=== PATIENT | male | born 1950 | race Caucasian/White ===

== ENCOUNTER 2018-04-01 20:44 | Observation (INO) ==
--- NOTE | 2018-04-01 21:51 | ED ---
HPI General Chief Complaint: Seizure Stated Complaint: Seizures/Evac Time Seen by Provider: 04/01/18 21:40 History of Present Illness HPI Narrative: 67-year-old male presents to the emergency department by EMS transport after syncopal episode at home. Patient has history of seizure disorder previous intracranial clipping and history of chronic back pain with prior lumbar laminectomy presents to the emergency department for evaluation. Patient here reports that today he was washing items for the recycling been did not have any aura for seizure had some mild lightheadedness but was not having a new headache sudden onset headache thunderclap headache worse headache of his life not experiencing any chest pain shortness of breath nausea vomiting focal upper extremity lower extremity numbness tingling or weakness or ataxia gait was going to go into the garage but actually found himself on the floor in the garage. Patient states there was no incontinence and no tongue trauma. Did not complain of new head pain neck pain back pain chest pain rib pain shortness of breath abdominal pain pelvic pain or extremity injury. Patient was able to get up off of the garage floor on his own went back into his house to the kitchen and then reports that his found him on the floor again and he knew immediately who he was where he was and who she was but again was not aware that he had a syncopal episode; did have episode of urinary incontinence at that time. Patient states based on his history of seizure disorder he did not think that he had had a seizure it was not typical of his seizures and there was no postictal confusion. Patient has been compliant with his medications. Patient denies any preceding or post headache visual disturbance altered mentation neck pain back pain chest pain rib pain shortness of breath nausea vomiting abdominal pain flank pain pelvic pain upper or lower extremity pain or weakness. Patient does have chronic weakness of the right upper extremity there is been present for several months that is not new and has history of chronic headache for over 10 intensity that is not atypical or more intense. Patient has had no recent febrile illness and no change in stools or bloody or black tarry stools. Patient does not take any blood thinning agent. Related Data Home Medications Medication Instructions Recorded Confirmed cetirizine [Zyrtec] 10 mg PO DAILY 04/01/18 04/01/18 clorazepate dipotassium 15 mg PO HS PRN 04/01/18 04/01/18 glucosamine sulfate [Glucosamine] 1,500 mg PO DAILY 04/01/18 04/01/18 latanoprost 1 drp OPHTHALMIC (EYE) QPM 04/01/18 04/01/18 gghgudfl-hyi-JF-lycopen-lutein 1 tab PO DAILY 04/01/18 04/01/18 [Centrum Silver Men] oxcarbazepine 900 mg PO BID 04/01/18 04/01/18 Allergies Allergy/AdvReac Type Severity Reaction Status Date / Time No Known Allergies Allergy Uncoded 09/14/16 14:25 Review of Systems ROS Unobtainable All other systems reviewed negative except as stated in HPI [facility] Medical History Medical History Chronic back pain (Acute) Seizure (Acute) Sleep apnea (Acute) Surgical History Surgical History H/O brain surgery (Acute) History of appendectomy (Acute) History of cervical spinal surgery (Acute) History of shoulder surgery (Acute) Hx of splenectomy (Acute) Social History Social History Substance History: No History of Abuse Second Hand Smoke Exposure: No Smoking Status: Never smoker How Often Do You Have a Drink Containing Alcohol: Never Recent Travel in [facility] within the Last 8 Weeks: No Recent Out of Country Travel within the Last 8 Weeks: No Immunization History Tetanus Immunization: <5 Years Hx Influenza Vaccine This Season: Yes Exam Narrative Exam Narrative: GENERAL: Well-developed well-nourished male no acute distress no respiratory distress resting supine with cervical collar in place; GCS 15 SKIN: Focused skin assessment warm/dry. HEAD: Atraumatic. Normocephalic. Small right lateral forehead hematoma without tenderness and no bony abnormality no abrasion no laceration. EYES: Pupils equal and round reactive to light. No scleral icterus. No injection or drainage. Extraocular muscles intact. ENT: No nasal bleeding or discharge. Mucous membranes pink and moist. Airway is patent no dental malocclusion. NECK: Trachea midline. No JVD. Midline palpation along the cervical spine reveals no bony tenderness or bony step-off no paracervical muscle spasm. Patient denies neck pain and requests collar removal at this time c-collar is removed by me. CARDIOVASCULAR: Regular rate and rhythm. No murmur appreciated. RESPIRATORY: No accessory muscle use. Clear to auscultation. Breath sounds equal bilaterally. GASTROINTESTINAL: Abdomen soft, non-tender, nondistended. Hepatic and splenic margins not palpable. MUSCULOSKELETAL: No obvious deformities. No clubbing. No cyanosis. No edema. NEUROLOGICAL: Awake and alert. No obvious cranial nerve deficits. Motor grossly within normal limits. Normal speech. PSYCHIATRIC: Appropriate mood and affect; insight and judgment normal. Course Reevaluation(s) Reevaluation #1: It is 12:50 AM patient is feeling improved exam is essentially unchanged still has a small abrasion to the forehead otherwise no other palpable findings to the head and neck is nontender chest wall is nontender lung sounds are clear abdomen is soft patient has superficial abrasion to the right knee patient reports last tetanus and rosacea within the past 2 years EKG shows a sinus rhythm with a right bundle branch block pattern that is noticed on previous EKG 03/23/15; patient's lab values are found to be grossly within normal range except for mild lymphocytosis troponin I is 0.02 not elevated urinalysis is unremarkable. It is unclear whether or not patient had new onset syncopal episode or seizure episode was atypical for him. Discussed with Dr Lacey --acepted for OBS admission DX: Syncope Time: 00:53 Initial Documented Vital Signs Temperature 98.8 F 04/01/18 21:03 Pulse Rate 84 04/01/18 21:03 Respiratory Rate 18 04/01/18 21:03 Blood Pressure 164/86 H 04/01/18 21:03 Pulse Oximetry 95 04/01/18 21:03 Last Documented Vital Signs Temperature 98.8 F 04/01/18 21:03 Pulse Rate 87 04/01/18 23:52 Respiratory Rate 18 04/01/18 23:52 Blood Pressure 143/70 H 04/01/18 23:52 Pulse Oximetry 96 04/01/18 23:52 Medical Decision Making [facility] Narrative Medical decision making narrative: 67-year-old male presents to the emergency department after a syncopal episode with atypical features of his history of seizure without preceding symptomatology other than dizziness will need to be evaluated for possible new onset seizure/syncope/arrhythmia/minor closed head injury, cervical spine sprain strain fracture/anemia/PE/ ACS; patient is Supine cervical collar removed imaging studies ordered along with basic lab work and EKG patient placed on plumbing engineer with continuous pulse oximetry IV access obtained. Differential Diagnosis Differential Diagnosis: Syncope seizure arrhythmia electrolyte disturbance ACS PE Medical Records Medical records reviewed: Yes I reviewed the patient's medical records. Lab Data Result diagrams: 04/01/18 21:50 04/01/18 21:30 Lab Results 04/01/18 04/01/18 04/01/18 Range/Units 21:30 21:50 21:50 WBC 9.7 (4.0-11.0) th/mm3 RBC 4.56 (4.50-5.90) mil/mm3 Hgb 14.8 (13.0-17.0) gm/dL Hct 44.3 (39.0-51.0) % MCV 97.0 (80.0-100.0) fL MCH 32.5 (27.0-34.0) pg MCHC 33.5 (32.0-36.0) % RDW 14.4 (11.6-17.2) % Plt Count 266 (150-450) th/mm3 MPV 9.5 (7.0-11.0) fL Neut % (Auto) 44.6 (16.0-70.0) % Lymph % (Auto) 47.1 H (9.0-44.0) % [place] % (Auto) 7.9 (0.0-8.0) % Eos % (Auto) 0.0 (0.0-4.0) % Baso % (Auto) 0.4 (0.0-2.0) % Neut # (Auto) 4.3 (1.8-7.7) th/mm3 Lymph # (Auto) 4.6 (1.0-4.8) th/mm3 [place] # (Auto) 0.8 (0.0-0.9) th/mm3 Eos # (Auto) 0.0 (0.0-0.4) th/mm3 Baso # (Auto) 0.0 (0.0-0.2) th/mm3 WBC Differential . Differential Comment Auto diff final PT 10.3 (9.8-11.6) sec INR 1.0 Ratio APTT 35.0 H (24.3-30.1) sec Sodium 143 (136-145) meq/L Potassium 3.6 (3.5-5.1) meq/L Chloride 107 (98-107) meq/L Carbon Dioxide 25.2 (21.0-32.0) meq/L Anion Gap 11 (5-15) meq/L BUN 13 (7-18) mg/dL Creatinine 0.98 (0.60-1.30) mg/dL Estimated GFR 76 L (>89) mL/min Random Glucose 103 (74-106) mg/dL Calcium 8.5 (8.5-10.1) mg/dL Magnesium 2.0 (1.5-2.5) mg/dL Total Bilirubin 0.3 (0.2-1.0) mg/dL AST 38 H (15-37) U/L ALT 37 (12-78) U/L Alkaline Phosphatase 112 (45-117) U/L Troponin I Less than 0.02 L (0.02-0.05) ng/mL Total Protein 7.6 (6.4-8.2) g/dL Albumin 3.6 (3.4-5.0) g/dL Urine Color (Yellw/Straw) Urine Clarity (Clear) Urine pH (5.0-8.5) Ur Specific [place] (1.002-1.035) Urine Protein (Neg-Trace) mg/dL Urine Glucose (UA) (Negative) mg/dL Urine Ketones (Negative) mg/dL Urine Occult Blood (Negative) Urine Nitrate (Negative) Urine Bilirubin (Negative) Urine Urobilinogen (Less than 2) mg/dL Ur Leukocyte Esterase (Negative) Urine RBC (0-3) /hpf Urine WBC (0-5) /hpf Urine Mucus (Occasional) /lpf Micro UA Comment Urine Culture Comments 04/01/18 Range/Units 23:50 WBC (4.0-11.0) th/mm3 RBC (4.50-5.90) mil/mm3 Hgb (13.0-17.0) gm/dL Hct (39.0-51.0) % MCV (80.0-100.0) fL MCH (27.0-34.0) pg MCHC (32.0-36.0) % RDW (11.6-17.2) % Plt Count (150-450) th/mm3 MPV (7.0-11.0) fL Neut % (Auto) (16.0-70.0) % Lymph % (Auto) (9.0-44.0) % [place] % (Auto) (0.0-8.0) % Eos % (Auto) (0.0-4.0) % Baso % (Auto) (0.0-2.0) % Neut # (Auto) (1.8-7.7) th/mm3 Lymph # (Auto) (1.0-4.8) th/mm3 [place] # (Auto) (0.0-0.9) th/mm3 Eos # (Auto) (0.0-0.4) th/mm3 Baso # (Auto) (0.0-0.2) th/mm3 WBC Differential Differential Comment PT (9.8-11.6) sec INR Ratio APTT (24.3-30.1) sec Sodium (136-145) meq/L Potassium (3.5-5.1) meq/L Chloride (98-107) meq/L Carbon Dioxide (21.0-32.0) meq/L Anion Gap (5-15) meq/L BUN (7-18) mg/dL Creatinine (0.60-1.30) mg/dL Estimated GFR (>89) mL/min Random Glucose (74-106) mg/dL Calcium (8.5-10.1) mg/dL Magnesium (1.5-2.5) mg/dL Total Bilirubin (0.2-1.0) mg/dL AST (15-37) U/L ALT (12-78) U/L Alkaline Phosphatase (45-117) U/L Troponin I (0.02-0.05) ng/mL Total Protein (6.4-8.2) g/dL Albumin (3.4-5.0) g/dL Urine Color Yellow (Yellw/Straw) Urine Clarity Hazy H (Clear) Urine pH 5.0 (5.0-8.5) Ur Specific [place] 1.021 (1.002-1.035) Urine Protein 100 H (Neg-Trace) mg/dL Urine Glucose (UA) Negative (Negative) mg/dL Urine Ketones Negative (Negative) mg/dL Urine Occult Blood Negative (Negative) Urine Nitrate Negative (Negative) Urine Bilirubin Negative (Negative) Urine Urobilinogen Less than 2 (Less than 2) mg/dL Ur Leukocyte Esterase Negative (Negative) Urine RBC 2 (0-3) /hpf Urine WBC 2 (0-5) /hpf Urine Mucus Few H (Occasional) /lpf Micro UA Comment Culture not ind Urine Culture Comments Culture not ind Imaging Data Radiologist's impression: ITS Impressions Cervical Spine CT 04/01/18 21:40 CONCLUSION: 1. No acute fracture or prevertebral soft tissue swelling. 2. Moderate bilateral foraminal narrowing at C4-5 and C5-6 and mild bilateral foraminal narrowing at C6-7. Head CT 04/01/18 21:42 CONCLUSION: 1. No acute hemorrhage, acute infarct, midline shift or extra-axial fluid collection. 2. Encephalomalacia involving the right frontal parietal lobe with asymmetric dilatation of the right lateral ventricle. 3. Multiple metallic foreign bodies within the right cerebral hemisphere status post surgery. Chest X-Ray 04/02/18 00:02 CONCLUSION: The lungs are clear. ECG Data Interpretation: EKG normal sinus rhythm rate 88 first-degree AV block right bundle branch block with left anterior fascicular block patient noted to have some her EKG with right bundle branch block 03/23/[address] elevation or injury pattern change noted Discharge Plan Discharge Disposition Patient Disposition: 30 Still Patient Discharge Details Discharge Problem: Syncope Physicians Team ED Provider: Narda Randle Primary Care Provider: Pako Lozano Rxs /Orders / Referrals /Forms Prescriptions: No Action latanoprost 0.005 % Drops 1 drp OPHTHALMIC (EYE) QPM RF: 0 cetirizine [Zyrtec] 10 mg Tablet 10 mg PO DAILY RF: 0 glucosamine sulfate [Glucosamine] 500 mg Tablet 1,500 mg PO DAILY RF: 0 oxcarbazepine 300 mg Tablet 900 mg PO BID RF: 0 clorazepate dipotassium 15 mg Tablet 15 mg PO HS PRN (Reason: Runny Nose) RF: 0 bpthxnhx-day-UE-lycopen-lutein [Centrum Silver Men] 300-600-300 mcg Tablet 1 tab PO DAILY RF: 0 Discharge Interventions Interventions: Vital Signs Last Done: 04/01/18 23:52 Status ED Status: With Doctor
[2018-04-01 22:34] LABS: Baso % (Auto) 0.4 % (0.0-2.0); Hematocrit 44.3 % (39.0-51.0); Hemoglobin 14.8 gm/dL (13.0-17.0); Lymph # (Auto) 4.6 th/mm3 (1.0-4.8); Lymph % (Auto) 47.1 % (9.0-44.0); Mean Corpuscular HGB Conc 33.5 % (32.0-36.0); Mean Corpuscular Hemoglobin 32.5 pg (27.0-34.0); Mean Platelet Volume 9.5 fL (7.0-11.0); Mono # (Auto) 0.8 th/mm3 (0.0-0.9); Mono % (Auto) 7.9 % (0.0-8.0); Neut # (Auto) 4.3 th/mm3 (1.8-7.7); Neut % (Auto) 44.6 % (16.0-70.0); Platelet Count 266 th/mm3 (150-450); Red Blood Count 4.56 mil/mm3 (4.50-5.90); Red Cell Distribution Width 14.4 % (11.6-17.2); White Blood Count 9.7 th/mm3 (4.0-11.0)
[2018-04-01 22:44] LABS: Prothrombin Time 10.3 sec (9.8-11.6)
[2018-04-01 23:32] LABS: Alkaline Phosphatase 112 U/L (45-117); Total Protein 7.6 g/dL (6.4-8.2)
[2018-04-01 23:36] LABS: Alanine Aminotransferase 37 U/L (12-78); Albumin 3.6 g/dL (3.4-5.0); Anion Gap 11 meq/L (5-15); Aspartate Aminotransferase 38 U/L (15-37); Blood Urea Nitrogen 13 mg/dL (7-18); Calcium 8.5 mg/dL (8.5-10.1); Carbon Dioxide 25.2 meq/L (21.0-32.0); Chloride 107 meq/L (98-107); Glomerular Filtration Rate 76 mL/min (>89); Glucose,Random 103 mg/dL (74-106); Potassium 3.6 meq/L (3.5-5.1); Sodium 143 meq/L (136-145)
[2018-04-02 00:05] LABS: Bilirubin,Urine Negative (Negative); Clarity,Urine Hazy (Clear); Color,Urine Yellow (Yellw/Straw); Glucose,Urine (UA) Negative (Negative); Leukocyte Esterase,Urine Negative (Negative); Mucus,Urine Few /lpf (Occasional); Nitrite,Urine Negative (Negative); Specific Gravity,Urine 1.021 (1.002-1.035)
--- NOTE | 2018-04-02 00:39 | XR ---
EXAM DATE: 04/02/2018 12:28 AM EDT AGE/SEX: 67 years / Male INDICATIONS: Short of breath. CLINICAL DATA: This is the patient's initial encounter. Patient reports that signs and symptoms have been present for 1 day and indicates a pain score of 3/10. MEDICAL/SURGICAL HISTORY: None. None. COMPARISON: [facility] [place], CHEST PA & LAT, 07/01/2016. [facility] [place], CT PULMONARY ANGIOGRAM, 03/23/2015. . FINDINGS: A single AP view of the chest demonstrates the lungs to be symmetrically aerated without evidence of mass, infiltrate or effusion. Moderate elevation of the right hemidiaphragm, similar to prior CT in 2015.. The cardiomediastinal contours are unremarkable. Old healed fracture of the lateral right clav icle. Stable moderate degenerative changes throughout the thoracic spine. CONCLUSION: The lungs are clear. Electronically signed by: Nito Luna MD 04/02/2018 12:37 AM EDT
[2018-04-02] MEDS ORDERED: Bisacodyl 10 MG Supp RECTAL PRN (01:04)
[2018-04-02] MEDS ORDERED: CLORAZEPATE 15 MG PO PRN (01:09)
[2018-04-02] MEDS: Sod Chloride 0.9% Inj 1,000 ML IV.CONT SCH ×3 (01:17→21:33)
--- NOTE | 2018-04-02 02:43 | P.HPIM ---
History of Present Illness Primary Care Physician: Pako Lozano MD History of Present Illness: This is a 67-year-old male with a PMH of HTN, Cerebral Aneurysm s/p Clipping, Seizure Disorder and Chronic Back Pain who was brought to the ER after apparent syncopal event. Pt states he remembers being in his kitchen, then woke up on the floor in the garage few moments later. Walked himself back into the kitchen when witness a syncopal event, no reported seizure per , however pt did have urinary incontinence. Pt has little recollection of events , but states he remembers feeling dizzy prior to syncope. Normally gets aura prior to seizure which he did not have at this time, states feels different from his previous episodes of seizures. Follows w/ Dr. King as outpatient, last medication change approx 1yr ago, no seizure activity since then. On arrival, BP 145/77, HR 89, O2 sat 99% of RA, Afebrile. CBC unremarkable. Chemistry essentially unremarkable except for GFR 76. Troponin negative. UA negative for UTI. CT Head with no acute findings, encephalomalacia of right frontal lobe, multiple metallic foreign bodies in the right cerebral hemisphere. CT C-spine no acute fracture. CXR lungs clear. Pt states he currently feels back to baseline. - Diagnosis (1) Seizure disorder (2) Syncope - Inpatient Certification If this patient has been admitted as an Inpatient: I certify that the inpatient services were ordered in accordance with Medicare regulations governing the order. This includes certification that hospital inpatient services are reasonable and necessary and in the case of services not specified as inpatient-only under 42 CFR 419.22(n), that they are appropriately provided as inpatient services in accordance to with the 2-midnight benchmark under 43 CFR 412.3(e) Review of Systems All other systems reviewed negative except as stated in HPI PMFSH - History History Provided By: Patient - Medical History Medical History: Medical History (Last Updated 04/01/18 @ 21:09 by Freya Walton) Chronic back pain (Acute) Seizure Sleep apnea - Surgical History Surgical History: Surgical History (Last Updated 04/01/18 @ 21:11 by Freya Walton) H/O brain surgery History of appendectomy History of cervical spinal surgery History of shoulder surgery Hx of splenectomy - Tobacco History Second Hand Smoke Exposure: No Smoking Status: Never smoker - Alcohol History How Often Do You Have a Drink Containing Alcohol: Never - Substance Use History Substance History: No History of Abuse - Travel History Recent Travel in the [place] Within the Last 8 Weeks: No Recent Travel Out of the Country Within the Last 8 Weeks: No - Immunization History Tetanus Immunization: <5 Years Hx Influenza Vaccine This Season: Yes Medications and Allergies Active Medications: Active Medications Al Hydroxide/Mg Hydroxide (Milk Of Magnesia Liq) 30 ml PO Q12H PRN PRN Reason: Mild Constipation Bisacodyl (Dulcolax Supp) 10 mg RECTAL DAILY PRN PRN Reason: SEVERE CONSITIPATION Sodium Chloride (Ns Inj) 1,000 mls @ 100 mls/hr IV.CONT .Q10H TRACY Last Admin: 04/02/18 01:17 Dose: 100 mls/hr Lactulose (Lactulose Liq) 30 ml PO DAILY PRN PRN Reason: SEVERE CONSITIPATION Latanoprost (Xalatan 0.005% Opth Drops) 1 drop EACH EYE QPM [facility] Non-Formulary Medication (Clorazepate) 15 mg PO HS PRN PRN Reason: Runny Nose Oxcarbazepine (Trileptal) 900 mg PO BID TRACY Senna/Docusate Sodium (Meredith-Colace) 1 tab PO BID TRACY Sennosides (Senokot) 17.2 mg PO Q12H PRN PRN Reason: Moderate Constipation Allergies Allergy/AdvReac Type Severity Reaction Status Date / Time No Known Allergies Allergy Uncoded 09/14/16 14:25 Home Medications Medication Instructions Recorded Confirmed Type cetirizine [Zyrtec] 10 mg PO DAILY 04/01/18 04/01/18 History clorazepate dipotassium 15 mg PO HS PRN 04/01/18 04/01/18 History glucosamine sulfate [Glucosamine] 1,500 mg PO DAILY 04/01/18 04/01/18 History latanoprost 1 drp OPHTHALMIC (EYE) QPM 04/01/18 04/01/18 History ypzsocaw-xzq-UD-lycopen-lutein 1 tab PO DAILY 04/01/18 04/01/18 History [Centrum Silver Men] oxcarbazepine 900 mg PO BID 04/01/18 04/01/18 History Exam Vital signs: Vital Signs 04/01/18 21:03 04/01/18 21:45 04/01/18 23:52 Temperature 98.8 F Pulse Rate 84 87 Respiratory Rate 18 18 Blood Pressure 164/86 H 143/70 H Pulse Oximetry 95 95 96 04/02/18 01:20 04/02/18 01:50 04/02/18 01:58 Temperature 98.0 F Pulse Rate 89 76 Respiratory Rate 14 16 Blood Pressure 145/77 H 130/76 Pulse Oximetry 94 L 99 Intake & Output 04/01/18 04/01/18 04/02/18 06:59 18:59 06:59 Output Total 100 / 100 Balance -100 / -100 Weight 108.862 kg Output: Urine 100 / 100 Other: # Voids 2 # Incontinent Voids 1 Date of Last Bowel Movement 04/02/18 Narrative: PE: GENERAL: Extremely pleasant middle-aged white male in no acute distress. HEENT: PERRLA, EOMI. No scleral icterus or conjunctival pallor. No lid lag or facial droop. CARDIOVASCULAR: Regular rate and rhythm. No obvious murmurs to auscultation. No chest tenderness to palpation. RESPIRATORY: No obvious rhonchi or wheezing. Clear to auscultation. Breath sounds equal bilaterally. GASTROINTESTINAL: Abdomen soft, non-tender, nondistended. BS normal. MUSCULOSKELETAL: Extremities without clubbing, cyanosis, or edema. No obvious deformities. NEUROLOGICAL: Awake, alert and oriented x4. No focal neurologic deficits. Moving both upper and lower extremities spontaneously. Results - Labs CBC & Chem 7: 04/01/18 21:50 04/01/18 21:30 Labs: Short CBC 04/01/18 Range/Units 21:50 WBC 9.7 (4.0-11.0) th/mm3 Hgb 14.8 (13.0-17.0) gm/dL Hct 44.3 (39.0-51.0) % Plt Count 266 (150-450) th/mm3 BMP 04/01/18 21:30 Sodium 143 Potassium 3.6 Chloride 107 Carbon Dioxide 25.2 BUN 13 Creatinine 0.98 Calcium 8.5 Cardiac Enzymes 04/01/18 Range/Units 21:30 Troponin I Less than 0.02 L (0.02-0.05) ng/mL Liver Function 04/01/18 Range/Units 21:30 Total Bilirubin 0.3 (0.2-1.0) mg/dL AST 38 H (15-37) U/L ALT 37 (12-78) U/L Alkaline Phosphatase 112 (45-117) U/L Albumin 3.6 (3.4-5.0) g/dL Urine 04/01/18 Range/Units 23:50 Urine Color Yellow (Yellw/Straw) Urine Clarity Hazy H (Clear) Urine pH 5.0 (5.0-8.5) Ur Specific [place] 1.021 (1.002-1.035) Urine Protein 100 H (Neg-Trace) mg/dL Urine Glucose (UA) Negative (Negative) mg/dL - Imaging Impressions Cervical Spine CT 04/01/18 21:40 CONCLUSION: 1. No acute fracture or prevertebral soft tissue swelling. 2. Moderate bilateral foraminal narrowing at C4-5 and C5-6 and mild bilateral foraminal narrowing at C6-7. Head CT 04/01/18 21:42 CONCLUSION: 1. No acute hemorrhage, acute infarct, midline shift or extra-axial fluid collection. 2. Encephalomalacia involving the right frontal parietal lobe with asymmetric dilatation of the right lateral ventricle. 3. Multiple metallic foreign bodies within the right cerebral hemisphere status post surgery. Chest X-Ray 04/02/18 00:02 CONCLUSION: The lungs are clear. Caprini VTE Risk Assessment Caprini VTE Risk Assessment: No/Low Risk (score <= 1) Caprini Risk Assessment Model: Point Value = 1 Point Value = 2 Point Value = 3 Point Value = 5 Age 41-60 Minor surgery BMI > 25 kg/m2 Swollen legs Varicose veins or History of unexplained or recurrent spontaneous Oral contraceptives or hormone replacement Sepsis (< 1 month) Serious lung disease, including pneumonia (< 1 month) Abnormal pulmonary function Acute myocardial infarction Congestive heart failure (< 1 month) History of inflammatory bowel disease Medical patient at bed rest Age 61-74 Arthroscopic surgery Major open surgery (> 45 min) Laparoscopic surgery (> 45 min) Malignancy Confined to bed (> 72 hours) Immobilizing plaster cast Central venous access Age >= 75 History of VTE Family history of VTE Factor V Leiden Prothrombin 30078C Lupus anticoagulant Anticardiolipin antibodies Elevated serum homocysteine Heparin-induced thrombocytopenia Other congenital or acquired thrombophilia Stroke (< 1 month) Elective arthroplasty Hip, pelvis, or leg fracture Acute spinal cord injury (< 1 month) Prophylaxis Regimen: Total Risk Factor Score Risk Level Prophylaxis Regimen 0-1 Low Early ambulation 2 Moderate Order ONE of the following: *Sequential Compression Device (SCD) *Heparin 5000 units SQ BID 3-4 Higher Order ONE of the following medications: *Heparin 5000 units SQ TID *Enoxaparin/Lovenox 40 mg SQ daily (WT < 150 kg, CrCl > 30 mL/min) *Enoxaparin/Lovenox 30 mg SQ daily (WT < 150 kg, CrCl > 10-29 mL/min) *Enoxaparin/Lovenox 30 mg SQ BID (WT < 150 kg, CrCl > 30 mL/min) AND/OR *Sequential Compression Device (SCD) 5 or more Highest Order ONE of the following medications: *Heparin 5000 units SQ TID (Preferred with Epidurals) *Enoxaparin/Lovenox 40 mg SQ daily (WT < 150 kg, CrCl > 30 mL/min) *Enoxaparin/Lovenox 30 mg SQ daily (WT < 150 kg, CrCl > 10-29 mL/min) *Enoxaparin/Lovenox 30 mg SQ BID (WT < 150 kg, CrCl > 30 mL/min) AND *Sequential Compression Device (SCD) Assessment and Plan - Assessment (1) Seizure disorder Code(s): G40.909 - Epilepsy, unspecified, not intractable, without status epilepticus Status: Acute (2) Syncope Code(s): R55 - Syncope and collapse Status: Acute - Plan A/P: 1. Syncope: apparent syncope x2 while at home, reports some dizziness prior to event, no h/o similar symptoms. CT Head/C-Spine w/ no acute findings, trop negative. Admit for Observation, telemetry, check serial cardiac enzymes to eval for underlying ischemia, check Echo for valvular abnormality/ cardiomyopathy. 2. Seizure Disorder: h/o seizure disorder, no witnessed seizure activity by however +incontinence. Seizure Precautions, resume home medications, check EEG. Consult Dr. King w/ whom he follows for further eval/ recommendations. 3. DVT Prophylaxis: SCD/Teds 4. Social work for d/c planning as needed. 5. Case discussed w/ ER physician at length, labs/records/imaging reviewed by me H&P: Quality - VTE Deep Vein Thrombosis/Pulmonary Embolism Present on Admission: No (2) Syncope Qualifiers: Syncope type: unspecified Qualified Code(s): R55 - Syncope and collapse
[2018-04-02] MEDS: Senna/Docusate Sodium 8.6/50 MG Tablet PO SCH ×2 (10:00→21:32)
[2018-04-02] MEDS: OXcarbazepine 300 MG Tablet PO SCH ×2 (10:00→21:31)
--- NOTE | 2018-04-02 11:18 | ECG ---
Date Performed: 04/01/2018 Time Performed: 20:58:12 PTAGE: 67 years EKG: Sinus rhythm WITH FIRST DEGREE AV BLOCK RIGHT BUNDLE BRANCH BLOCK LEFT ANTERIOR FASCICULAR BLOCK ABNORMAL ECG PREVIOUS TRACING : 07/01/2016 14.58 Since the previous tracing, no significant change noted DOCTOR: Catrachito Harding Interpretating Date/Time 04/02/2018 11:17:53
--- NOTE | 2018-04-02 11:18 | ECG ---
Date Performed: 04/01/2018 Time Performed: 21:48:27 PTAGE: 67 years EKG: Sinus rhythm WITH FIRST DEGREE AV BLOCK RIGHT BUNDLE BRANCH BLOCK LEFT ANTERIOR FASCICULAR BLOCK ABNORMAL ECG PREVIOUS TRACING : 04/01/2018 20.58 Since the previous tracing, no significant change noted DOCTOR: Catrachito Harding Interpretating Date/Time 04/02/2018 11:17:30
--- NOTE | 2018-04-02 14:51 | ECHRPT ---
Indication: CARDIOMYOPATHY CONCLUSIONS Normal left ventricular size. Wall thickness is normal. The left ventricular systolic function is hyperdynamic with an estimated ejection fraction in the ra nge of 65- 70%. There is trace tricuspid valve regurgitation. A prominent epicardial fat pad is present. BP: / HR: Rhythm: Sinus MEASUREMENTS (Male / Female) Normal Values Technical Quality:Fair 2D ECHO LV Diastolic Diameter PLAX 5.5 cm 4.2 - 5.9 / 3.9 - 5.3 cm LV Systolic Diameter PLAX 3.5 cm IVS Diastolic Thickness 1.0 cm 0.6 - 1.0 / 0.6 - 0.9 cm LVPW Diastolic Thickness 1.0 cm 0.6 - 1.0 / 0.6 - 0.9 cm LV Relative Wall Thickness 0.4 RV Internal Dim ED PLAX 3.1 cm LVOT Diameter 2.4 cm Aortic Root Diameter 3.9 cm LA Systolic Diameter LX 3.9 cm 3.0 - 4.0 / 2.7 - 3.8 cm M-MODE AV Cusp Separation MM 2.3 cm DOPPLER AV Peak Velocity 125.0 cm/s AV Peak Gradient 6.3 mmHg AV Mean Gradient 3.0 mmHg AV Velocity Time Integral 21.2 cm LVOT Peak Velocity 100.0 cm/s LVOT Peak Gradient 4.0 mmHg LVOT Velocity Time Integral 16.1 cm AV Area Cont Eq vti 3.4 cm AV Area Cont Eq pk 3.6 cm Mitral E Point Velocity 77.0 cm/s Mitral A Point Velocity 84.4 cm/s Mitral E to A Ratio 0.9 TR Peak Velocity 155.0 cm/s TR Peak Gradient 9.6 mmHg PV Peak Velocity 67.7 cm/s PV Peak Gradient 1.8 mmHg FINDINGS LEFT VENTRICLE Normal left ventricular size. Wall thickness is normal. The left ventricular systolic function is hyperdynamic with an estimated ejection fraction in the ra nge of 65- 70%. RIGHT VENTRICLE Normal right ventricular size and systolic function. LEFT ATRIUM The left atrial size is normal. RIGHT ATRIUM The right atrial size is normal. ATRIAL SEPTUM The interatrial septum not well visualized. AORTA The aortic root and proximal ascending aorta are normal in size on limited imaging. MITRAL VALVE Structurally normal mitral valve. No mitral valve stenosis or regurgitation. AORTIC VALVE Trileaflet aortic valve. No aortic valve stenosis or regurgitation. TRICUSPID VALVE There is trace tricuspid valve regurgitation. PULMONARY VALVE No pulmonary valve regurgitation or stenosis. VESSELS The inferior vena cava was not well visualized. PERICARDIUM A prominent epicardial fat pad is present. Ancelmo Suarez MD, FACC (Electronically Signed) Final Date:02 April 2018 14:50
--- NOTE | 2018-04-02 15:58 | P.PN ---
Subjective Interval history: Follow up for seizure vs syncope. The patient is seen with his at bedside. The patient reports feeling better today without any acute medical complaints. He states yesterday he was outside in the garage when he just went down. He states this was not like his prior seizures where he experiences an aura. He did have urinary incontinence during this episode. Denies tongue biting. He was able to get up, walk into the house, when he had another episode in front of his . The denies noticing any tonic-clonic movements, however he had a blank stare and was unable to get out any words. The patient is now back to his baseline. Physical Exam Vital signs: Vital Signs 04/01/18 21:03 04/01/18 21:45 04/01/18 23:52 Temperature 98.8 F Pulse Rate 84 87 Respiratory Rate 18 18 Blood Pressure 164/86 H 143/70 H Pulse Oximetry 95 95 96 04/02/18 01:20 04/02/18 01:50 04/02/18 01:58 Temperature 98.0 F Pulse Rate 89 76 Respiratory Rate 14 16 Blood Pressure 145/77 H 130/76 Pulse Oximetry 94 L 99 04/02/18 04:38 04/02/18 07:41 04/02/18 10:38 Temperature 98.8 F 98.8 F Pulse Rate 76 71 71 Respiratory Rate 17 20 Blood Pressure 135/69 137/71 Pulse Oximetry 93 L 95 04/02/18 12:21 Temperature 98.9 F Pulse Rate 96 H Respiratory Rate 18 Blood Pressure 145/95 H Pulse Oximetry 95 Intake & Output 04/01/18 04/02/18 04/02/18 18:59 06:59 18:59 Output Total 500 / 500 300 / 300 Balance -500 / -500 -300 / -300 Weight 108.862 kg Output: Urine 500 / 500 300 / 300 Other: # Voids 2 # Incontinent Voids 1 Date of Last Bowel Movement 04/02/18 03/31/18 Narrative: GENERAL: Well-nourished, well-developed pleasant male patient in [facility]. SKIN: Warm and dry. No rash. HEENT: Normocephalic. Atraumatic. Old right craniotomy scarring. Pupils equal and round. Mucous membranes pink and moist. CARDIOVASCULAR: Regular rate and rhythm. No murmur appreciated. RESPIRATORY: No accessory muscle use. Clear to auscultation. Breath sounds equal bilaterally. GASTROINTESTINAL: Abdomen soft, non-tender, nondistended. Normoactive bowel sounds x4. MUSCULOSKELETAL: No obvious deformities. Extremities without clubbing, cyanosis , or edema. NEUROLOGICAL: Awake and alert. No obvious cranial nerve deficits. Motor grossly within normal limits. Moving all extremities spontaneously. Normal speech. PSYCHIATRIC: Appropriate mood and affect; insight and judgment normal. Results - Labs CBC & Chem 7: 04/01/18 21:50 04/01/18 21:30 Laboratory Results - last 24 hr 04/01/18 04/01/18 04/01/18 21:30 21:50 21:50 WBC 9.7 RBC 4.56 Hgb 14.8 Hct 44.3 MCV 97.0 MCH 32.5 MCHC 33.5 RDW 14.4 Plt Count 266 MPV 9.5 Neut % (Auto) 44.6 Lymph % (Auto) 47.1 H [place] % (Auto) 7.9 Eos % (Auto) 0.0 Baso % (Auto) 0.4 Neut # (Auto) 4.3 Lymph # (Auto) 4.6 [place] # (Auto) 0.8 Eos # (Auto) 0.0 Baso # (Auto) 0.0 WBC Differential . Differential Comment Auto diff final PT 10.3 INR 1.0 APTT 35.0 H Sodium 143 Potassium 3.6 Chloride 107 Carbon Dioxide 25.2 Anion Gap 11 BUN 13 Creatinine 0.98 Estimated GFR 76 L POC Glucose Random Glucose 103 Calcium 8.5 Magnesium 2.0 Total Bilirubin 0.3 AST 38 H ALT 37 Alkaline Phosphatase 112 Troponin I Less than 0.02 L Total Protein 7.6 Albumin 3.6 Urine Color Urine Clarity Urine pH Ur Specific [place] Urine Protein Urine Glucose (UA) Urine Ketones Urine Occult Blood Urine Nitrate Urine Bilirubin Urine Urobilinogen Ur Leukocyte Esterase Urine RBC Urine WBC Urine Mucus Micro UA Comment Urine Culture Comments 04/01/18 04/02/18 04/02/18 23:50 07:00 10:43 WBC RBC Hgb Hct MCV MCH MCHC RDW Plt Count MPV Neut % (Auto) Lymph % (Auto) [place] % (Auto) Eos % (Auto) Baso % (Auto) Neut # (Auto) Lymph # (Auto) [place] # (Auto) Eos # (Auto) Baso # (Auto) WBC Differential Differential Comment PT INR APTT Sodium Potassium Chloride Carbon Dioxide Anion Gap BUN Creatinine Estimated GFR POC Glucose 108 Random Glucose Calcium Magnesium Total Bilirubin AST ALT Alkaline Phosphatase Troponin I Less than 0.02 L Total Protein Albumin Urine Color Yellow Urine Clarity Hazy H Urine pH 5.0 Ur Specific [place] 1.021 Urine Protein 100 H Urine Glucose (UA) Negative Urine Ketones Negative Urine Occult Blood Negative Urine Nitrate Negative Urine Bilirubin Negative Urine Urobilinogen Less than 2 Ur Leukocyte Esterase Negative Urine RBC 2 Urine WBC 2 Urine Mucus Few H Micro UA Comment Culture not ind Urine Culture Comments Culture not ind - Imaging Impressions Cervical Spine CT 04/01/18 21:40 CONCLUSION: 1. No acute fracture or prevertebral soft tissue swelling. 2. Moderate bilateral foraminal narrowing at C4-5 and C5-6 and mild bilateral foraminal narrowing at C6-7. Head CT 04/01/18 21:42 CONCLUSION: 1. No acute hemorrhage, acute infarct, midline shift or extra-axial fluid collection. 2. Encephalomalacia involving the right frontal parietal lobe with asymmetric dilatation of the right lateral ventricle. 3. Multiple metallic foreign bodies within the right cerebral hemisphere status post surgery. Chest X-Ray 04/02/18 00:02 CONCLUSION: The lungs are clear. Assessment and Plan - Assessment (1) Seizure disorder Code(s): G40.909 - Epilepsy, unspecified, not intractable, without status epilepticus Status: Acute (2) Syncope Code(s): R55 - Syncope and collapse Status: Acute - Plan 67-year-old male with a PMH of HTN, Cerebral Aneurysm s/p Clipping, Seizure Disorder and Chronic Back Pain who was brought to the ER after apparent syncopal event. Syncope: apparent syncope x2 while at home, reports some dizziness prior to event, no h/o similar symptoms; however did have urinary incontinence -CT Head reviewed, shows no acute findings; Encephalomalacia involving the right frontal parietal lobe with asymmetric dilatation of the right lateral ventricle; Multiple metallic foreign bodies within the right cerebral hemisphere s/p surgery -CT C-Spine w/ no acute findings, reviewed -Monitor on telemetry -Check orthostatics -Check carotid U/S -Troponins negative x2, EKG without acute ischemic changes -check Echo for valvular abnormality/cardiomyopathy. -neurology consulted Seizure Disorder: h/o seizure disorder, no witnessed seizure activity by however +incontinence. -Seizure Precautions -resume home medications -check EEG. -Consult patient's neurologist Dr. King for further eval/ recommendations. DVT Prophylaxis: SCD/Teds Discharge Planning: Discharge pending EEG and neurology consultation and clearance. Progress Note: Quality - VTE Deep Vein Thrombosis/Pulmonary Embolism Present on Admission: No (2) Syncope Qualifiers: Syncope type: unspecified Qualified Code(s): R55 - Syncope and collapse
[2018-04-02] MEDS ORDERED: Latanoprost 0.005% Opth Drops 2.5 ML Bottle EACH EYE SCH (18:00)
--- NOTE | 2018-04-02 21:18 | MB ---
cc: Mirza Baltazar MD, PhD DATE: 04/02/2018 REASON FOR CONSULTATION: Loss of consciousness. HISTORY OF PRESENT ILLNESS: Mr. 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 This came to attention by producing seizures. He has a history of secondary seizure disorder. He is currently on Trileptal 900 mg b.i.d. This admission was prompted by 2 episodes of loss of consciousness. The first, he was in the garage, there were no witnesses, it was hot out. He had no warning, suddenly lost consciousness. He states for 3-4 minutes until the [facility]AC arrived following that was slightly confused, disoriented. There were some bladder incontinence. He walked back in the house. In the house, he had a second episode of loss of consciousness. He states his did witness this. He states that he suddenly stiffened up in his arms and legs and then lost consciousness for a shorter period of time. No tonic-clonic activity was witnessed, however. He does have a history of seizures and takes Trileptal 900 mg b.i.d. He states, in the past, he was on Tegretol, felt he was doing better on Tegretol, felt better with fewer side effects. He states the Tegretol was stopped because he had a low white blood cell count. It was found, however, that he had an enlarged spleen and once his spleen was taken out, his white count came back to normal, so it was felt that in retrospect it was probably not due to the Tegretol. PAST MEDICAL HISTORY: History of arteriovenous malformation, right hemisphere, status post surgery, seizure disorder, history of hypertension, lumbar spine surgery. CURRENT MEDICATIONS: 1. Trileptal 900 mg b.i.d. 2. Dulcolax. 3. Lactulose. 4. Xalatan eye drops. 5. Clorazepate. 6. Meredith-Colace. 7. Senokot. NEUROLOGIC EXAMINATION: VITAL SIGNS: Blood pressure is 157/74, pulse is 77 and regular, respirations are 18, temperature 98.2 degrees. HIGHER CORTICAL FUNCTION: He is alert and oriented x 3. Speech is normal. Comprehension is intact. CRANIAL NERVES: Pupils are 2 mm, symmetric, reactive to light. The extraocular movements are normal. There is no facial asymmetry. MOTOR EXAMINATION: He demonstrates 5/5 strength in all major groups in both upper and lower extremities. There is no drift. Fine motor are skills normal. Reflexes are symmetric. IMAGING STUDIES: CT of the brain reveals postoperative changes and encephalomalacia in the right hemisphere with metallic clips present. No acute change. No hemorrhage is identified. CT cervical spine shows foraminal narrowing of C4-C5 and C5-C6. No fractures identified. LABORATORY DATA: White count 9700; hemoglobin 14.8; hematocrit 44.3%; platelet count 266,000. Sodium is 143, potassium 3.6, chloride 107, CO2 of 25.7. The BUN is 13, creatinine 0.98, GFR 76, calcium 8.5, glucose 103, AST 38, ALT 37, alkaline phosphatase 112. His PT is 10.3, INR 1, aPTT 35.0. IMPRESSION AND RECOMMENDATIONS: Two episodes of loss of consciousness. The history is suggestive of seizures. The first episode was fairly prolonged, several minutes. He did have bladder incontinence and somewhat of a postictal state with some confusion. Second episode, he had some motor activity in terms of stiffening up. He states in the past, he felt Tegretol worked better for him, that he had fewer side effects. In retrospect, felt it was not causing the leukopenia as it was due to the hypersplenism. Therefore, I would recommend resuming Tegretol. Once he has had a therapeutic Tegretol level, we will taper off the Trileptal. We will obtain an EEG as well. He is told not to drive for at least 6 months of being seizure free. Mirza Baltazar MD, PhD RAMÓN/JUD , 08:30 PM , 09:17 PM
[2018-04-02] MEDS: carBAMazepine 200 MG Tablet PO SCH (21:32)
[2018-04-03 07:09] LABS: Baso % (Auto) 0.7 % (0.0-2.0); Hematocrit 43.7 % (39.0-51.0); Hemoglobin 14.7 gm/dL (13.0-17.0); Lymph # (Auto) 2.3 th/mm3 (1.0-4.8); Lymph % (Auto) 32.2 % (9.0-44.0); Mean Corpuscular HGB Conc 33.7 % (32.0-36.0); Mean Corpuscular Hemoglobin 32.7 pg (27.0-34.0); Mean Platelet Volume 9.2 fL (7.0-11.0); Mono # (Auto) 0.7 th/mm3 (0.0-0.9); Neut # (Auto) 4.1 th/mm3 (1.8-7.7); Neut % (Auto) 57.1 % (16.0-70.0); Platelet Count 252 th/mm3 (150-450); Red Blood Count 4.51 mil/mm3 (4.50-5.90); Red Cell Distribution Width 14.3 % (11.6-17.2); White Blood Count 7.1 th/mm3 (4.0-11.0)
[2018-04-03 07:15] LABS: Alanine Aminotransferase 31 U/L (12-78); Albumin 3.2 g/dL (3.4-5.0); Alkaline Phosphatase 103 U/L (45-117); Anion Gap 10 meq/L (5-15); Aspartate Aminotransferase 26 U/L (15-37); Blood Urea Nitrogen 12 mg/dL (7-18); Carbon Dioxide 22.4 meq/L (21.0-32.0); Chloride 110 meq/L (98-107); Glomerular Filtration Rate Greater Than 89 mL/min (>89); Glucose,Random 85 mg/dL (74-106); Sodium 142 meq/L (136-145)
[2018-04-03 07:17] LABS: Potassium 4.1 meq/L (3.5-5.1)
--- NOTE | 2018-04-03 09:51 | US ---
EXAM DATE: 04/03/2018 9:38 AM EDT AGE/SEX: 67 years / Male INDICATIONS: Cerebrovascular accident. CLINICAL DATA: This is the patient's subsequent encounter. Patient reports that signs and symptoms h ave been present for 1 day and indicates a pain score of 0/10. MEDICAL/SURGICAL HISTORY: . Seizure. Sleep apnea. Appendectomy. Splenectomy. Brain surgery. Cervical spine surgery. Shoulder surgery. COMPARISON: No prior exams available for comparison. VELOCITY PARAMETERS: ICA/CCA Ratio: Right 0.8 , Left 0.9 ICA: Right 53 cm/sec, Left 68 cm/sec CCA: Right 64 cm/sec, Left 75 cm/sec ECA: Right 55 cm/sec, Left 77 cm/sec Vertebral: Right 39 cm/sec antegrade, Left 49 cm/sec antegrade FINDINGS: Right Carotid: No significant plaque is visualized.The waveforms are within normal limits. Left Carotid: No significant plaque is visualized. The waveforms are within normal limits. Other: None. CONCLUSION: 1. Right Internal Carotid Artery: No significant stenosis or atherosclerotic plaque is visualized. 2. Left Internal Carotid Artery: No significant stenosis or atherosclerotic plaque is visualized. Electronically signed by: Ernie Arreguin MD 04/03/2018 9:50 AM EDT
[2018-04-03] MEDS: OXcarbazepine 300 MG Tablet PO SCH (10:45)
[2018-04-03] MEDS: Senna/Docusate Sodium 8.6/50 MG Tablet PO SCH (10:45)
[2018-04-03] MEDS: carBAMazepine 200 MG Tablet PO SCH (10:45)
--- NOTE | 2018-04-03 11:48 | P.PN ---
Physical Exam Vital signs: Vital Signs 04/02/18 12:21 04/02/18 16:00 04/02/18 17:41 Temperature 98.9 F 98.0 F 97.8 F Pulse Rate 96 H 76 Respiratory Rate 18 18 Blood Pressure 145/95 H 173/94 H 160/82 H Pulse Oximetry 95 99 95 04/02/18 17:43 04/02/18 17:45 04/02/18 20:10 Temperature 98.7 F 98.7 F Pulse Rate 75 77 79 Respiratory Rate 18 18 Blood Pressure 171/87 H 157/74 H Pulse Oximetry 94 L 95 04/02/18 21:17 04/03/18 00:00 04/03/18 00:05 Temperature 98.6 F 98.5 F Pulse Rate 77 80 68 Respiratory Rate 17 17 Blood Pressure 136/71 179/78 H Pulse Oximetry 93 L 93 L 04/03/18 00:32 04/03/18 00:33 04/03/18 03:50 Temperature Pulse Rate 67 Respiratory Rate Blood Pressure 165/81 H 163/83 H Pulse Oximetry 04/03/18 04:00 04/03/18 08:00 04/03/18 08:34 Temperature 98.1 F 98.7 F Pulse Rate 75 67 65 Respiratory Rate 17 16 Blood Pressure 133/67 161/88 H Pulse Oximetry 92 L 98 04/03/18 09:00 Temperature Pulse Rate 65 Respiratory Rate Blood Pressure Pulse Oximetry Intake & Output 04/02/18 04/03/18 04/03/18 18:59 06:59 18:59 Intake Total 846 / 846 Output Total 300 / 300 Balance 546 / 546 Intake: IV 846 / 846 NS Inj 1,000 ML @ 100 mls/hr IV 846 / 846 .CONT .Q10H TRACY Rx#:[id number] Output: Urine 300 / 300 Other: # Voids 3 Date of Last Bowel Movement 03/31/18 03/31/18 04/02/18 Results - Labs CBC & Chem 7: 04/03/18 06:15 04/03/18 06:15 Laboratory Results - last 24 hr 04/03/18 04/03/18 06:15 06:15 WBC 7.1 RBC 4.51 Hgb 14.7 Hct 43.7 MCV 97.0 MCH 32.7 MCHC 33.7 RDW 14.3 Plt Count 252 MPV 9.2 Neut % (Auto) 57.1 Lymph % (Auto) 32.2 [place] % (Auto) 10.0 H Eos % (Auto) 0.0 Baso % (Auto) 0.7 Neut # (Auto) 4.1 Lymph # (Auto) 2.3 [place] # (Auto) 0.7 Eos # (Auto) 0.0 Baso # (Auto) 0.0 WBC Differential . Differential Comment Auto diff final Sodium 142 Potassium 4.1 Chloride 110 H Carbon Dioxide 22.4 Anion Gap 10 BUN 12 Creatinine 0.83 Estimated GFR Greater than 89 Random Glucose 85 Calcium 9.0 Total Bilirubin 0.2 AST 26 ALT 31 Alkaline Phosphatase 103 Troponin I Less than 0.02 L Total Protein 7.0 D Albumin 3.2 L - Imaging Impressions Carotid Doppler Study 04/03/18 00:00 CONCLUSION: 1. Right Internal Carotid Artery: No significant stenosis or atherosclerotic plaque is visualized. 2. Left Internal Carotid Artery: No significant stenosis or atherosclerotic plaque is visualized. Assessment and Plan - Assessment (1) Seizure disorder Code(s): G40.909 - Epilepsy, unspecified, not intractable, without status epilepticus Status: Acute (2) Syncope Code(s): R55 - Syncope and collapse Status: Acute (2) Syncope Qualifiers: Syncope type: unspecified Qualified Code(s): R55 - Syncope and collapse
--- NOTE | 2018-04-03 12:09 | P.DS ---
Date of admission: 04/02/18 01:05 Primary care physician: Pako Lozano MD Attending physician on discharge: Erica Cruz Anticipated date of discharge: 04/03/18 Brief History from admission: This is a 67-year-old male with a PMH of HTN, Cerebral Aneurysm s/p Clipping, Seizure Disorder and Chronic Back Pain who was brought to the ER after apparent syncopal event. Pt states he remembers being in his kitchen, then woke up on the floor in the garage few moments later. Walked himself back into the kitchen when witness a syncopal event, no reported seizure per , however pt did have urinary incontinence. Pt has little recollection of events , but states he remembers feeling dizzy prior to syncope. Normally gets aura prior to seizure which he did not have at this time, states feels different from his previous episodes of seizures. Follows w/ Dr. King as outpatient, last medication change approx 1yr ago, no seizure activity since then. On arrival, BP 145/77, HR 89, O2 sat 99% of RA, Afebrile. CBC unremarkable. Chemistry essentially unremarkable except for GFR 76. Troponin negative. UA negative for UTI. CT Head with no acute findings, encephalomalacia of right frontal lobe, multiple metallic foreign bodies in the right cerebral hemisphere. CT C-spine no acute fracture. CXR lungs clear. Pt states he currently feels back to baseline. DS: Diagnosis - Discharge Diagnosis (1) Seizure disorder Status: Acute (2) Syncope Status: Acute DS: Medications - Discharge Medications Prescriptions: carbamazepine 200 mg PO BID #60 tab DS: Summary Hospital Course: Follow-up visit for seizure versus syncope. Patient seen and examined today. States he is doing okay, states that all his symptoms have improved. He saw Dr. Baltazar and stated that they are going to taper Trileptal and give him some Tegretol. Needs to follow-up in Dr. King's office. Denies any acute issues overnight. Denies pain and discomfort. Denies SOB/ dyspnea. Denies chest pain, palpitations, headaches, dizziness. Denies fevers, chills, n/v/d. Denies dysuria. This is a 67-year-old male with a PMH of HTN, Cerebral Aneurysm s/p Clipping, Seizure Disorder and Chronic Back Pain who was brought to the ER after apparent syncopal event. He was seen by Dr. Baltazar in the inpatient setting and has added Tegretol with his Trileptal with plan to taper off with Trileptal. Patient advised not to drive at least for 6 months. Will have a follow-up EEG and outpatient. CT of the head with no acute hemorrhage, acute infarct, midline shift or extra-axial fluid collection. Encephalomalacia involving the right frontoparietal lobe with asymmetric dilatation of the right lateral ventricle. Multiple metallic foreign bodies within the right cerebral hemisphere status post surgery. Echocardiogram study showed EF of 65-70%. Carotid Doppler study showed no significant stenosis or atherosclerotic plaque is visualized both carotid arteries. Cervical spine CT showed no acute fracture or prevertebral soft tissue swelling. Moderate bilateral foraminal narrowing at C4-C5 and C5-C6 and mild bilateral foraminal narrowing at C6-C7. Patient had no acute issues overnight. Clinically improved. Patient has met maximal benefits of hospitalization. Clinically stable for discharge. Follow- up with Dr. King and outpatient - Time Spent with Patient Total time spent providing and/or coordinating discharge services: Less than 30 minutes - Quality: VTE Deep Vein Thrombosis/Pulmonary Embolism Present on Admission: No Exam Vital signs: Vital Signs 04/02/18 12:21 04/02/18 16:00 04/02/18 17:41 Temperature 98.9 F 98.0 F 97.8 F Pulse Rate 96 H 76 Respiratory Rate 18 18 Blood Pressure 145/95 H 173/94 H 160/82 H Pulse Oximetry 95 99 95 04/02/18 17:43 04/02/18 17:45 04/02/18 20:10 Temperature 98.7 F 98.7 F Pulse Rate 75 77 79 Respiratory Rate 18 18 Blood Pressure 171/87 H 157/74 H Pulse Oximetry 94 L 95 04/02/18 21:17 04/03/18 00:00 04/03/18 00:05 Temperature 98.6 F 98.5 F Pulse Rate 77 80 68 Respiratory Rate 17 17 Blood Pressure 136/71 179/78 H Pulse Oximetry 93 L 93 L 04/03/18 00:32 04/03/18 00:33 04/03/18 03:50 Temperature Pulse Rate 67 Respiratory Rate Blood Pressure 165/81 H 163/83 H Pulse Oximetry 04/03/18 04:00 04/03/18 08:00 04/03/18 08:34 Temperature 98.1 F 98.7 F Pulse Rate 75 67 65 Respiratory Rate 17 16 Blood Pressure 133/67 161/88 H Pulse Oximetry 92 L 98 04/03/18 09:00 Temperature Pulse Rate 65 Respiratory Rate Blood Pressure Pulse Oximetry Intake & Output 04/02/18 04/03/18 04/03/18 18:59 06:59 18:59 Intake Total 846 / 846 Output Total 300 / 300 Balance 546 / 546 Intake: IV 846 / 846 NS Inj 1,000 ML @ 100 mls/hr IV 846 / 846 .CONT .Q10H TRACY Rx#:[id number] Output: Urine 300 / 300 Other: # Voids 3 Date of Last Bowel Movement 03/31/18 03/31/18 04/02/18 Narrative: GENERAL: This is a well-nourished, well-developed patient, in no apparent distress. SKIN: Warm and dry. HEENT: Normocephalic. Pupils equal round and reactive. Nose without bleeding. Airway patent. NECK: Trachea midline. No JVD. Supple. CARDIOVASCULAR: Regular rate and rhythm without murmurs, gallops, or rubs. RESPIRATORY: Clear to auscultation. Breath sounds equal bilaterally. No wheezes , rales, or rhonchi. GASTROINTESTINAL: Abdomen soft, non-tender, nondistended. Bowel Sounds normoactive x4. MUSCULOSKELETAL: Extremities without clubbing, cyanosis, or edema. NEUROLOGICAL: Awake and alert. Oriented to time, place, person. No focal neuro deficit. Moves all extremities. Normal speech. Results Procedures completed during hospitalization: None Labs on day of discharge: Labs from last 24 hours 04/03/18 04/03/18 06:15 06:15 WBC 7.1 RBC 4.51 Hgb 14.7 Hct 43.7 MCV 97.0 MCH 32.7 MCHC 33.7 RDW 14.3 Plt Count 252 MPV 9.2 Neut % (Auto) 57.1 Lymph % (Auto) 32.2 [place] % (Auto) 10.0 H Eos % (Auto) 0.0 Baso % (Auto) 0.7 Neut # (Auto) 4.1 Lymph # (Auto) 2.3 [place] # (Auto) 0.7 Eos # (Auto) 0.0 Baso # (Auto) 0.0 WBC Differential . Differential Comment Auto diff final Sodium 142 Potassium 4.1 Chloride 110 H Carbon Dioxide 22.4 Anion Gap 10 BUN 12 Creatinine 0.83 Estimated GFR Greater than 89 Random Glucose 85 Calcium 9.0 Total Bilirubin 0.2 AST 26 ALT 31 Alkaline Phosphatase 103 Troponin I Less than 0.02 L Total Protein 7.0 D Albumin 3.2 L - Impressions ITS Impressions Cervical Spine CT 04/01/18 21:40 CONCLUSION: 1. No acute fracture or prevertebral soft tissue swelling. 2. Moderate bilateral foraminal narrowing at C4-5 and C5-6 and mild bilateral foraminal narrowing at C6-7. Head CT 04/01/18 21:42 CONCLUSION: 1. No acute hemorrhage, acute infarct, midline shift or extra-axial fluid collection. 2. Encephalomalacia involving the right frontal parietal lobe with asymmetric dilatation of the right lateral ventricle. 3. Multiple metallic foreign bodies within the right cerebral hemisphere status post surgery. Chest X-Ray 04/02/18 00:02 CONCLUSION: The lungs are clear. Carotid Doppler Study 04/03/18 00:00 CONCLUSION: 1. Right Internal Carotid Artery: No significant stenosis or atherosclerotic plaque is visualized. 2. Left Internal Carotid Artery: No significant stenosis or atherosclerotic plaque is visualized. Discharge Plan - Discharge Disposition Patient Disposition: Discharge Home - Discharge Condition Condition: Good - Discharge Order Discharge Orders: Discharge Order (Routine); Ordered 04/03/18 Ordered By: Priscila Anton - Physicians Team Primary Care Provider: Pako Lozano Attending Provider: Erica Cruz
== END 2018-04-03 12:36 | disposition home or self-care (01) ==
LOC: NEPHCDU 20:44 → NEPC 20:44 → NEDA 20:44 → NEPHCDU 04-02 01:40
PROVIDERS: ADMIT Hospitalist; ATTEND Hospitalist